=== PATIENT | male | born 1965 | race Caucasian/White ===

== ENCOUNTER 2020-06-23 18:52 | Observation (INO) ==
[2020-06-23] MEDS ORDERED: NS 0.9% 1000 ml BAG 1,000 ML IV.FLUID IV ONE (19:41)
[2020-06-23] MEDS ORDERED: Vancomycin 1,000 MG in NS 0.9% 250 ml 250 ML IVPB ONE (20:00)
[2020-06-23 21:34] LABS: ABS Basophils 0.1 10^3/ul (0-0.2); ABS Eosinophils 0.4 10^3/ul (0-0.6); ABS Lymphocytes 3.4 10^3/ul (1.0-4.8); ABS Monocytes 1.1 10^3/ul (0-0.8); ABS Neutrophils 6.3 10^3/ul (1.5-7.7); Eosinophil % 3.2 %; Hematocrit 36 % (42-52); Hemoglobin 12.5 g/dL (14.0-18.0); Lymphocyte % 30.3 %; Mean Corpuscular HGB Conc 35 g/dL (31-36); Mean Corpuscular Hemoglobin 32 pg (27-31); Mean Corpuscular Volume 92 fL (80-94); Mean Platelet Volume 6.7 fL (7.4-10.4); Platelet Count 646 10^3/uL (150-450); Red Blood Count 3.95 10^6 /uL (4.18-5.48); Red Cell Distribution Width 14 % (10-15); White Blood Count 11.3 10^3/uL (3.5-10.8)
[2020-06-23 21:44] LABS: INR 1.12 (0.82-1.09)
[2020-06-23 21:47] LABS: Albumin 3.8 g/dL (3.2-5.2); BUN/Creatinine Ratio 24.6 (8-20); C Reactive Protein 10.48 mg/L (<8.01); Calcium 8.7 mg/dL (8.6-10.3); EGFR African American 153.2 (>60); EGFR Non-African American 126.6 (>60); Potassium 4.4 mmol/L (3.5-5.0); Total Bilirubin 0.2 mg/dL (0.2-1.0); Total Protein 7.8 g/dL (6.4-8.9)
[2020-06-23 22:19] LABS: Urine Appearance Clear; Urine Bilirubin Negative (Negative); Urine Blood Negative (Negative); Urine Color Yellow; Urine Glucose Negative (Negative); Urine Ketones Negative (Negative); Urine Nitrite Negative (Negative); Urine Protein Negative (Negative); Urine Specific Gravity 1.018 (1.010-1.030); Urine Urobilinogen Negative (Negative)
[2020-06-23] MEDS ORDERED: Albuterol 2.5mg/3 ml (0.083%) NEB.SOLN INH PRN (23:01)
[2020-06-23] MEDS ORDERED: Ondansetron 4 mg VIAL 2 MG/ML 2 ml VIAL IV ONE (23:01)
[2020-06-23] MEDS ORDERED: Ondansetron 4 mg VIAL 2 MG/ML 2 ml VIAL IV PRN (23:01)
[2020-06-23] MEDS ORDERED: cefTRIAXone 1 gm/50 mL NS BAG 1 GM/50 ML BAG IV ONE (23:09)
[2020-06-23] MEDS ORDERED: Nicotine Lozenge mini 2 MG LOZNG.MINI MT PRN (23:17)
[2020-06-23] MEDS ORDERED: Enoxaparin 40 MG/0.4 ML SYR SUBCUT SCH (23:45)
[2020-06-24] MEDS ORDERED: Acyclovir IV 500 MG/10 ML 100 ML VIAL (500 MG) IVPB SCH (01:00)
[2020-06-24] MEDS ORDERED: ACYCLOVIR IVPB SCH (01:00)
[2020-06-24] MEDS ORDERED: NS 0.9% IVPB SCH (01:00)
[2020-06-24 01:37] LABS: HIV 4th Generation Nonreactive (Nonreactive)
[2020-06-24] MEDS: NS 0.9% IVPB SCH ×2 (02:30→10:38)
[2020-06-24] MEDS: ACYCLOVIR IVPB SCH ×2 (02:30→10:38)
[2020-06-24 07:10] LABS: ABS Basophils 0.1 10^3/ul (0-0.2); ABS Eosinophils 0.3 10^3/ul (0-0.6); ABS Monocytes 1.1 10^3/ul (0-0.8); Eosinophil % 2.7 %; Hematocrit 37 % (42-52); Hemoglobin 12.4 g/dL (14.0-18.0); Lymphocyte % 25.8 %; Mean Corpuscular HGB Conc 34 g/dL (31-36); Mean Corpuscular Hemoglobin 31 pg (27-31); Mean Corpuscular Volume 92 fL (80-94); Mean Platelet Volume 6.8 fL (7.4-10.4); Platelet Count 614 10^3/uL (150-450); Red Blood Count 3.98 10^6 /uL (4.18-5.48); Red Cell Distribution Width 14 % (10-15); White Blood Count 11.4 10^3/uL (3.5-10.8)
[2020-06-24 07:25] LABS: BUN/Creatinine Ratio 22.1 (8-20); Calcium 8.1 mg/dL (8.6-10.3); EGFR Non-African American 104.1 (>60); Potassium 4.5 mmol/L (3.5-5.0)
[2020-06-24] MEDS ORDERED: Nicotine PATCH 21 MG/24 HR PATCH TRANSDERM SCH (08:00)
[2020-06-24 12:07] VITALS: BP 146/68
[2020-06-25 23:28] LABS: HSV 1 PCR, Blood Negative (Negative); HSV 2 PCR, Blood Negative (Negative)
[2020-06-26 03:52] LABS: Herpes Source PROXIMAL PENIS
[2020-06-26 03:52] LABS: Herpes Source DISTAL PENIS
== END 2020-06-24 15:00 | disposition home or self-care (01) ==
LOC: ED 18:52 → MED 18:52
PROVIDERS: ADMIT Hospitalist; ATTEND Internal Medicine